=== PATIENT | male | born 1995 | race Caucasian/White ===

== ENCOUNTER 2019-12-30 19:49 | Emergency (ER) | payer MEDICAID, OTHER ==
--- NOTE | 2019-12-30 20:34 | EDM.PDOC ---
ED HPI GENERAL MEDICAL PROBLEM - General Chief Complaint: Respiratory Problem Stated Complaint: PNEUMONIA Time Seen by Provider: 12/30/19 20:30 Source of Information: Reports: Patient, Family History Limitations: Reports: No Limitations - History of Present Illness INITIAL COMMENTS - FREE TEXT/NARRATIVE: 24-year-old male with muscular dystrophy, has been treated with several rounds of antibiotics for left lower lobe pneumonia. Today he seemed more short of breath than they were concerned it was moving into his right lung. No fevers or chills, he did however run out of his nebulizer medicines 2 days ago and used an albuterol ampule that a relative had today about 3 hours before coming in. He looks stable, he is not labored and his O2 sats are normal, he is afebrile. Onset: Unknown/Unsure Associated Symptoms: Reports: Cough, Shortness of Breath. Denies: Fever/Chills - Related Data Allergies Allergy/AdvReac Type Severity Reaction Status Date / Time No Known Allergies Allergy Verified 12/30/19 20:12 Home Meds: Home Meds Albuterol Sulfate 1 ampule INH TID 12/30/19 [History] carvediloL [Carvedilol] 1 tab PO BID 12/30/19 [History] cefUROXime axetil [Cefuroxime] 1 tab PO BID 12/30/19 [History] lisinopriL [Lisinopril] 1 tab PO DAILY 12/30/19 [History] Past Medical History Neurological History: Reports: Other (See Below) Other Neuro History: MD - Past Surgical History HEENT Surgical History: Reports: Tonsillectomy Social & Family History - Tobacco Use Smoking Status *Q: Never Smoker ED ROS GENERAL - Review of Systems Review Of Systems: See Below Constitutional: Denies: Fever, Chills Respiratory: Reports: Shortness of Breath, Cough. Denies: Sputum Cardiovascular: Denies: Chest Pain GI/Abdominal: Denies: Nausea, Vomiting Musculoskeletal: Reports: Other (Wheelchair-bound from muscular dystrophy) Neurological: Denies: Headache ED EXAM, GENERAL - Physical Exam Exam: See Below Exam Limited By: No Limitations General Appearance: Alert, No Apparent Distress Head: Atraumatic Respiratory/Chest: No Respiratory Distress, Decreased Breath Sounds (Decreased breath sounds in the left base, otherwise normal lung sounds. No expiratory wheezes) Course - Vital Signs Last Recorded V/S: Last Vital Signs Temp 97.3 F 12/30/19 20:27 Pulse Resp 14 12/30/19 20:27 BP Pulse Ox 94 L 12/30/19 20:27 - Orders/Labs/Meds Orders: Active Orders 24 hr Category Date Time Status RT Aerosol Therapy [RC] ASDIRECTED Care 12/30/19 20:54 Active Chest 2V [CR] Routine Exams 12/30/19 20:31 Taken Meds: Medications Discontinued Medications Generic Name Dose Route Start Last Admin Trade Name David PRN Reason Stop Dose Admin Albuterol/Ipratropium 3 ml 12/30/19 20:54 12/30/19 21:34 Duoneb 3.0-0.5 Mg/3 Ml NEB 12/30/19 20:55 3 ml ONETIME ONE Administration - Re-Assessments/Exams Free Text/Narrative Re-Assessment/Exam: 12/30/19 20:34 A 2 view chest x-ray was obtained. 12/30/19 21:14 2 view x-ray showed no significant infiltrate, there did appear to be some mild increased vascularity which may be chronic. He will continue with his cefuroxime antibiotic and I gave him refills of his albuterol for his nebulizer which he ran out of. The DuoNeb gave him some subjective improvement, objectively he was already doing well. He will recheck at the clinic in the next 48 hours to compare the chest x-rays. Departure - Departure Time of Disposition: 21:43 Disposition: Home, Self-Care 01 Clinical Impression: Pneumonia Qualifiers: Pneumonia type: due to unspecified organism Laterality: left Lung location: lower lobe of lung Qualified Code(s): J18.9 - Pneumonia, unspecified organism Reactive airway disease Qualifiers: Asthma severity: mild Asthma persistence: persistent Asthma complication type: with acute exacerbation Qualified Code(s): J45.31 - Mild persistent asthma with (acute) exacerbation - Discharge Information Instructions: Shortness of Breath, Adult, [id number] Referrals: Jass Corral MD [Primary Care Provider] - Forms: ED Department Discharge Care Plan Goals: Consider rechecking in the next few days at the clinic to compare x-rays and monitor progress. Continue with the antibiotic as prescribed and use nebulizers every 4 hours as needed. Return anytime if worsening or concerns. Sepsis Event Note - Evaluation Sepsis Screening Result: No Definite Risk - Focused Exam Vital Signs: Vital Signs Temp Resp Pulse Ox 12/30/19 20:27 97.3 F 14 94 L Date Exam was Performed: 12/30/19 Time Exam was Performed: 23:03 - My Orders Last 24 Hours: My Active Orders 12/30/19 20:31 Chest 2V [CR] Routine 12/30/19 20:54 RT Aerosol Therapy [RC] ASDIRECTED - Assessment/Plan Last 24 Hours: My Active Orders 12/30/19 20:31 Chest 2V [CR] Routine 12/30/19 20:54 RT Aerosol Therapy [RC] ASDIRECTED
[2019-12-30] MEDS ORDERED: Albuterol/Ipratropium 3.0-0.5 MG/3 ML Neb Soln NEB ONE (20:54)
--- NOTE | 2019-12-31 11:04 | CR ---
CHEST: 2 view CLINICAL HISTORY:Dyspnea COMPARISON:2009 FINDINGS: Heart size and pulmonary vascularity are normal. There is some elevation left hemidiaphragm. There is patchy density in the retrocardiac region which may represent infiltrate or atelectasis. There may be a minimal effusion. Impression: Left lower lobe airspace disease most likely pneumonic infiltrate Probable small left pleural effusion.
== END 2019-12-30 21:43 | disposition home or self-care (01) ==
LOC: JP.ED 19:49
DX: J18.9 Pneumonia, unspecified organism (principal); J45.31 Mild persistent asthma with (acute) exacerbation; Z79.899 Other long term (current) drug therapy
CPT/HCPCS: 71046; 71046-26; 94640; 99284; 99285-25; J7620-GY

== ENCOUNTER 2021-10-20 08:18 | Emergency (ER) | payer MEDICAID ==
[2021-10-20 09:31] LABS: CORONAVIRUS COVID-19 NAA NEGATIVE (NEGATIVE)
[2021-10-20] MEDS ORDERED: Carvedilol 12.5 MG Tab PO ONE (09:39)
--- NOTE | 2021-10-20 09:40 | EDM.PDOC ---
ED HPI GENERAL MEDICAL PROBLEM - General Chief Complaint: Respiratory Problem Stated Complaint: COVID SYMPTOMS Time Seen by Provider: 10/20/21 09:33 Source of Information: Reports: Patient, Family, RN Notes Reviewed History Limitations: Reports: No Limitations - History of Present Illness INITIAL COMMENTS - FREE TEXT/NARRATIVE: 26-year-old gentleman presents emergency department today with concern about Covid exposure, for the last couple days he had sore throat cough sputum production feels a little short of breath did have positive exposure about a week prior, - Related Data Allergies Allergy/AdvReac Type Severity Reaction Status Date / Time No Known Allergies Allergy Verified 10/20/21 08:52 Home Meds: Home Meds carvediloL [Carvedilol] 1 tab PO BID 12/30/19 [History] lisinopriL [Lisinopril] 1 tab PO DAILY 12/30/19 [History] Acetaminophen/Codeine [Tylenol with Codeine No.3 300MG/30MG] 1 tab PO BEDTIME 10/20/21 [History] Azithromycin 250 mg PO DAILY #6 tablet 10/20/21 [Rx] Past Medical History Cardiovascular History: Reports: Cardiomyopathy Respiratory History: Reports: Other (See Below) Other Respiratory History: bronchitis Musculoskeletal History: Reports: Muscular Dystrophy Other Musculoskeletal History: at Neurological History: Reports: Other (See Below) Other Neuro History: MD - Past Surgical History HEENT Surgical History: Reports: Tonsillectomy Social & Family History - Tobacco Use Tobacco Use Status *Q: Never Tobacco User - Caffeine Use Caffeine Use: Reports: Soda Other Caffeine Use: 1-2 sodas per day - Recreational Drug Use Recreational Drug Type: Reports: Marijuana/Hashish Recreational Drug Use Frequency: Rarely ED ROS GENERAL - Review of Systems Review Of Systems: See Below Constitutional: Reports: Fever HEENT: Reports: No Symptoms Respiratory: Reports: Shortness of Breath, Cough, Sputum Cardiovascular: Reports: No Symptoms GI/Abdominal: Reports: No Symptoms ED EXAM, GENERAL - Physical Exam Exam: See Below Exam Limited By: No Limitations General Appearance: Alert, WD/WN, No Apparent Distress Respiratory/Chest: No Respiratory Distress, Lungs Clear, Normal Breath Sounds, No Accessory Muscle Use, Chest Non-Tender Cardiovascular: Tachycardia Course - Vital Signs Last Recorded V/S: Last Vital Signs Temp 98 F 10/20/21 10:46 Pulse 116 H 10/20/21 10:46 Resp 18 01/04/22 08:55 BP 101/69 10/20/21 09:50 Pulse Ox 95 10/20/21 10:46 - Orders/Labs/Meds Orders: Active Orders 24 hr Category Date Time Status Isolation [COMM] Stat Oth 10/20/21 08:32 Ordered Labs: Laboratory Tests 10/20/21 10/20/21 10/20/21 Range/Units 08:41 09:57 09:57 WBC 9.5 (4.5-11.0) K/uL RBC 4.51 (4.30-5.90) M/uL Hgb 14.4 (12.0-15.0) g/dL Hct 43.1 (40.0-54.0) % MCV 96 (80-98) fL MCH 32 H (27-31) pg MCHC 33 (32-36) % Plt Count 190 (150-400) K/uL Neut % (Auto) 87.2 H (36-66) % Lymph % (Auto) 6.2 L (24-44) % Gove % (Auto) 6.0 (2-6) % Eos % (Auto) 0.1 L (2-4) % Baso % (Auto) 0.2 (0-1) % Sodium 139 L (140-148) mmol/L Potassium 3.5 L (3.6-5.2) mmol/L Chloride 101 (100-108) mmol/L Carbon Dioxide 21 (21-32) mmol/L Anion Gap 20.5 H (5.0-14.0) mmol/L BUN 14 (7-18) mg/dL Creatinine 0.3 L (0.8-1.3) mg/dL Est Cr Clr Drug Dosing 289.80 mL/min Estimated GFR (MDRD) > 60 (>60) Glucose 109 H (74-106) mg/dL Lactic Acid (0.4-2.0) mmol/L Calcium 9.1 (8.5-10.1) mg/dL Total Bilirubin 0.5 (0.2-1.0) mg/dL AST 26 (15-37) U/L ALT 47 (12-78) U/L Alkaline Phosphatase 82 (46-116) U/L C-Reactive Protein 7.00 H (0.0-0.3) mg/dL Total Protein 7.1 (6.4-8.2) g/dL Albumin 4.2 (3.4-5.0) g/dL Globulin 2.9 (2.3-3.5) g/dL Albumin/Globulin Ratio 1.4 (1.2-2.2) Procalcitonin ng/mL Influenza Type A RNA Negative (NEGATIVE) RSV RNA (INAAT) Negative (NEGATIVE) Influenza Type B RNA Negative (NEGATIVE) SARS-CoV-2 RNA (JOYCE) Negative (NEGATIVE) 10/20/21 10/20/21 Range/Units 09:57 09:57 WBC (4.5-11.0) K/uL RBC (4.30-5.90) M/uL Hgb (12.0-15.0) g/dL Hct (40.0-54.0) % MCV (80-98) fL MCH (27-31) pg MCHC (32-36) % Plt Count (150-400) K/uL Neut % (Auto) (36-66) % Lymph % (Auto) (24-44) % Gove % (Auto) (2-6) % Eos % (Auto) (2-4) % Baso % (Auto) (0-1) % Sodium (140-148) mmol/L Potassium (3.6-5.2) mmol/L Chloride (100-108) mmol/L Carbon Dioxide (21-32) mmol/L Anion Gap (5.0-14.0) mmol/L BUN (7-18) mg/dL Creatinine (0.8-1.3) mg/dL Est Cr Clr Drug Dosing mL/min Estimated GFR (MDRD) (>60) Glucose (74-106) mg/dL Lactic Acid 1.6 (0.4-2.0) mmol/L Calcium (8.5-10.1) mg/dL Total Bilirubin (0.2-1.0) mg/dL AST (15-37) U/L ALT (12-78) U/L Alkaline Phosphatase (46-116) U/L C-Reactive Protein (0.0-0.3) mg/dL Total Protein (6.4-8.2) g/dL Albumin (3.4-5.0) g/dL Globulin (2.3-3.5) g/dL Albumin/Globulin Ratio (1.2-2.2) Procalcitonin 0.31 ng/mL Influenza Type A RNA (NEGATIVE) RSV RNA (INAAT) (NEGATIVE) Influenza Type B RNA (NEGATIVE) SARS-CoV-2 RNA (JOYCE) (NEGATIVE) Meds: Medications Discontinued Medications Generic Name Dose Route Start Last Admin Trade Name Freq PRN Reason Stop Dose Admin Carvedilol 12.5 mg 10/20/21 09:39 10/20/21 09:50 Carvedilol 12.5 Mg Tab PO 10/20/21 09:40 12.5 mg ONETIME ONE Administration Ceftriaxone Sodium 1 gm 10/20/21 11:10 Ceftriaxone 1 Gm Vial IM 10/20/21 11:11 ONETIME ONE Departure - Departure Time of Disposition: 11:15 Disposition: Home, Self-Care 01 Condition: Fair Clinical Impression: Acute bronchiolitis Qualifiers: Bronchiolitis organism: other organism Qualified Code(s): J21.8 - Acute bronchiolitis due to other specified organisms - Discharge Information Prescriptions: Azithromycin 250 mg PO DAILY #6 tablet Instructions: Acute Bronchitis, Adult, [id number] Referrals: Jass Corral MD [Primary Care Provider] - Forms: ED Department Discharge Additional Instructions: Take full course of antibiotics start today your antibiotics have been faxed to site pharmacy, please follow-up with your primary care in the next 3 to 5 days for reevaluation call return to the emergency department worsening of symptoms. Sepsis Event Note (ED) - Evaluation Sepsis Screening Result: No Definite Risk - Focused Exam Vital Signs: Vital Signs Temp Pulse Pulse Resp BP BP Pulse Ox 10/20/21 10:46 98 F 116 H 95 10/20/21 09:50 125 H 101/69 10/20/21 08:55 98.5 F 120 H 18 101/69 91 L 10/20/21 08:41 98.5 F 120 H 18 101/69 91 L - My Orders Last 24 Hours: My Active Orders 10/20/21 08:32 Isolation [COMM] Stat - Assessment/Plan Last 24 Hours: My Active Orders 10/20/21 08:32 Isolation [COMM] Stat Plan: Assessment Acuity = acute Site and laterality = bronchitis complicated in a gentleman with known muscular dystrophy Etiology = unknown Manifestations = dyspnea Location of injury = Home Lab values = CBC unremarkable CRP elevated 7.0 procalcitonin 0.31 lactic acid within normal limits CMP unremarkable chest x-ray consistent with pneumonitis Covid is negative influenza negative RSV negative Plan Given his health history elected to treat empirically azithromycin per package directions faxed to site pharmacy also 1 g Rocephin IM provided in the emergency department have follow-up primary care 3 to 5 days for further evaluation This note was dictated using [employer] voice recognition software please call with any questions on syntax or grammar.
--- NOTE | 2021-10-20 10:31 | CR ---
CHEST: SOB CLINICAL HISTORY:SOB COMPARISON:2019 FINDINGS: There is a generalized increase in lung markings. No airspace disease is identified. There are no effusions. Heart size and pulmonary vascularity are normal. Impression: Mild generalized increase in the lung markings may represent a pneumonitis
[2021-10-20] MEDS ORDERED: cefTRIAXone 1 GM Vial IM ONE (11:10)
[2021-10-20] MEDS ORDERED: cefTRIAXone 1 GM, Lidocaine 1% 2.1 ML IM ONE ×2 (12:00)
== END 2021-10-20 12:30 | disposition home or self-care (01) ==
LOC: JP.ED 08:18
DX: J21.8 Acute bronchiolitis due to other specified organisms (principal); R00.0 Tachycardia, unspecified; Z20.822 Contact with and (suspected) exposure to COVID-19
CPT/HCPCS: 0241U; 36415; 71046; 80053; 83605; 84145; 85025; 86140; 96372; 99283; A9270; J0696

== ENCOUNTER 2021-10-24 08:41 | Emergency (ER) | payer MEDICAID ==
[2021-10-24] MEDS ORDERED: guaiFENesin/Dextromethorphan 100-10 MG/5 ML Soln 10 ML Cup PO STA ×2 (09:26→13:23)
[2021-10-24 09:28] LABS: CORONAVIRUS COVID-19 NAA NEGATIVE (NEGATIVE)
--- NOTE | 2021-10-24 09:28 | EDM.PDOC ---
ED HPI GENERAL MEDICAL PROBLEM - General Chief Complaint: Respiratory Problem Stated Complaint: SOB Time Seen by Provider: 10/24/21 09:21 Source of Information: Reports: Patient, Family, Old Records, RN Notes Reviewed History Limitations: Reports: No Limitations - History of Present Illness INITIAL COMMENTS - FREE TEXT/NARRATIVE: 26-year-old gentleman presents emergency department day complaint of shortness of breath, he has a known history of muscular dystrophy I did have the opportunity evaluate him 4 days ago felt he had COVID bronchitis type picture did place him on antibiotics with a azithromycin 1 g Rocephin provided he states he is doing okay except for the large amount of mucus production and he has difficulty coughing it up which then makes him feel short of breath he did do nebulizer to this morning which he felt did not help - Related Data Allergies Allergy/AdvReac Type Severity Reaction Status Date / Time No Known Allergies Allergy Verified 10/20/21 08:52 Home Meds: Home Meds carvediloL [Carvedilol] 1 tab PO BID 12/30/19 [History] lisinopriL [Lisinopril] 1 tab PO DAILY 12/30/19 [History] Acetaminophen/Codeine [Tylenol with Codeine No.3 300MG/30MG] 1 tab PO BEDTIME 10/20/21 [History] Azithromycin 250 mg PO DAILY #6 tablet 10/20/21 [Rx] Past Medical History Cardiovascular History: Reports: Cardiomyopathy Respiratory History: Reports: Other (See Below) Other Respiratory History: bronchitis Musculoskeletal History: Reports: Muscular Dystrophy Other Musculoskeletal History: at Neurological History: Reports: Other (See Below) Other Neuro History: MD - Past Surgical History HEENT Surgical History: Reports: Tonsillectomy Social & Family History - Tobacco Use Tobacco Use Status *Q: Never Tobacco User - Caffeine Use Caffeine Use: Reports: Soda Other Caffeine Use: 1-2 sodas per day ED ROS GENERAL - Review of Systems Review Of Systems: See Below Constitutional: Denies: Fever, Chills HEENT: Reports: No Symptoms Respiratory: Reports: Shortness of Breath, Cough, Sputum Cardiovascular: Reports: No Symptoms GI/Abdominal: Reports: No Symptoms ED EXAM, GENERAL - Physical Exam Exam: See Below Exam Limited By: No Limitations General Appearance: Alert, WD/WN, No Apparent Distress Respiratory/Chest: No Respiratory Distress, Chest Non-Tender, Decreased Breath Sounds, Rhonchi Cardiovascular: Regular Rate, Rhythm, No Murmur #1 Interpretation EKG Date: 10/24/21 Rhythm: NSR Channing: Normal P-Wave: Present QRS: Normal ST-T: Normal QT: Normal Comparison: NA - No Prior EKG Course - Vital Signs Last Recorded V/S: Last Vital Signs Temp 98.7 F 10/24/21 08:57 Pulse 81 10/24/21 13:30 Resp 21 H 10/24/21 13:30 BP 109/74 10/24/21 13:30 Pulse Ox 96 10/24/21 13:30 - Orders/Labs/Meds Orders: Active Orders 24 hr Category Date Time Status Peripheral IV Care [RC] . DIRECTED Care 10/24/21 10:15 Active Potassium Chloride 20 meq Med 10/24/21 12:30 Active Lidocaine 1% [Xylocaine 1%] 2 ml Sodium Chloride 0.9% [Normal Saline] 100 ml IV Q2H Sodium Chloride 0.9% [Saline Flush] Med 10/24/21 10:14 Active 10 ml FLUSH ASDIRECTED PRN Isolation [COMM] Stat Oth 10/24/21 08:43 Ordered Peripheral IV Insertion Adult [OM.PC] Urgent Oth 10/24/21 10:14 Ordered EKG 12 Lead [EK] Stat Ther 10/24/21 10:15 Ordered Medication Orders Potassium Chloride 20 meq/Lidocaine HCl 2 ml/ Sodium Chloride 112 mls @ 50 mls/hr IV Q2H FRANCI Stop: 10/24/21 14:29 Last Admin: 10/24/21 12:22 Dose: 50 mls/hr Documented by: DRE Sodium Chloride (Sodium Chloride 0.9% 10 Ml Syringe) 10 ml FLUSH ASDIRECTED PRN PRN Reason: Keep Vein Open Labs: Laboratory Tests 10/24/21 10/24/21 10/24/21 Range/Units 09:01 09:44 09:44 WBC 9.9 (3.2-11.0) K/uL RBC 4.43 (4.14-5.76) M/uL Hgb 14.1 (12.9-16.9) Hct 40.9 (38.4-49.7) % MCV 92.3 (81.4-99.0) fL MCH 31.8 (31.6-35.5) pg MCHC 34.5 (31.6-35.5) g/dL Plt Count 212 (130-375) K/uL Immature Gran % (Auto) 0.4 (0.0-0.7) % Neut % (Auto) 58.7 (36-66) % Lymph % (Auto) 30.9 (24-44) % Monona % (Auto) 9.6 H (2-6) % Eos % (Auto) 0.2 L (2-4) % Baso % (Auto) 0.2 (0-1) % Neut # (Auto) 5.82 (1.0-7.6) K/uL Lymph # (Auto) 3.07 (0.8-3.3) K/uL Monona # (Auto) 0.95 H (0.20-0.90) K/uL Eos # (Auto) 0.02 L (0.60-0.80) K/uL Baso # (Auto) 0.02 (0.00-0.10) K/uL Immature Gran # (Auto) 0.04 (0.00-0.23) K/uL Sodium 139 L (140-148) mmol/L Potassium 2.7 L* (3.6-5.2) mmol/L Chloride 101 (100-108) mmol/L Carbon Dioxide 30 (21-32) mmol/L Anion Gap 10.7 (5.0-14.0) mmol/L BUN 6 L D (7-18) mg/dL Creatinine 0.2 L (0.8-1.3) mg/dL Est Cr Clr Drug Dosing 434.69 mL/min Estimated GFR (MDRD) > 60 (>60) Glucose 95 (74-106) mg/dL Lactic Acid (0.4-2.0) mmol/L Calcium 8.7 (8.5-10.1) mg/dL Procalcitonin ng/mL Influenza Type A RNA Negative (NEGATIVE) RSV RNA (INAAT) Negative (NEGATIVE) Influenza Type B RNA Negative (NEGATIVE) SARS-CoV-2 RNA (JOYCE) Negative (NEGATIVE) 10/24/21 10/24/21 Range/Units 09:44 09:44 WBC (3.2-11.0) K/uL RBC (4.14-5.76) M/uL Hgb (12.9-16.9) Hct (38.4-49.7) % MCV (81.4-99.0) fL MCH (31.6-35.5) pg MCHC (31.6-35.5) g/dL Plt Count (130-375) K/uL Immature Gran % (Auto) (0.0-0.7) % Neut % (Auto) (36-66) % Lymph % (Auto) (24-44) % Monona % (Auto) (2-6) % Eos % (Auto) (2-4) % Baso % (Auto) (0-1) % Neut # (Auto) (1.0-7.6) K/uL Lymph # (Auto) (0.8-3.3) K/uL Monona # (Auto) (0.20-0.90) K/uL Eos # (Auto) (0.60-0.80) K/uL Baso # (Auto) (0.00-0.10) K/uL Immature Gran # (Auto) (0.00-0.23) K/uL Sodium (140-148) mmol/L Potassium (3.6-5.2) mmol/L Chloride (100-108) mmol/L Carbon Dioxide (21-32) mmol/L Anion Gap (5.0-14.0) mmol/L BUN (7-18) mg/dL Creatinine (0.8-1.3) mg/dL Est Cr Clr Drug Dosing mL/min Estimated GFR (MDRD) (>60) Glucose (74-106) mg/dL Lactic Acid 1.2 (0.4-2.0) mmol/L Calcium (8.5-10.1) mg/dL Procalcitonin 0.06 ng/mL Influenza Type A RNA (NEGATIVE) RSV RNA (INAAT) (NEGATIVE) Influenza Type B RNA (NEGATIVE) SARS-CoV-2 RNA (JOYCE) (NEGATIVE) Meds: Medications Generic Name Dose Route Start Last Admin Trade Name Freq PRN Reason Stop Dose Admin Potassium Chloride 20 meq/ 112 mls @ 50 mls/hr 10/24/21 12:30 10/24/21 12:22 Lidocaine HCl 2 ml/ Sodium IV 10/24/21 14:29 50 mls/hr Chloride Q2H FRANCI Administration Sodium Chloride 10 ml 10/24/21 10:14 Sodium Chloride 0.9% 10 Ml Syringe FLUSH ASDIRECTED PRN Keep Vein Open Discontinued Medications Generic Name Dose Route Start Last Admin Trade Name David PRN Reason Stop Dose Admin Dexamethasone 10 mg 10/24/21 10:46 10/24/21 11:59 Dexamethasone 4 Mg/Ml Sdv PO 10/24/21 10:47 10 mg ONETIME ONE Administration Guaifenesin/Dextromethorphan 10 ml 10/24/21 09:26 10/24/21 09:44 Guaifenesin/Dextromethorphan 100-10 Mg/5 Ml Soln 10 Ml Cup PO 10/24/21 09:27 10 ml NOW STA Administration Guaifenesin/Dextromethorphan 10 ml 10/24/21 13:23 10/24/21 13:35 Guaifenesin/Dextromethorphan 100-10 Mg/5 Ml Soln 10 Ml Cup PO 10/24/21 13:24 10 ml NOW STA Administration Potassium Chloride 20 meq/ 100 mls @ 50 mls/hr 10/24/21 10:14 10/24/21 12:00 Premix IV 10/24/21 12:13 50 mls/hr ONETIME ONE Administration Lactated Ringer's 1,000 mls @ 999 mls/hr 10/24/21 12:03 10/24/21 12:07 Ringers, Lactated IV 10/24/21 13:03 999 mls/hr BOLUS ONE Administration Potassium Chloride 40 meq 10/24/21 10:14 Potassium Chloride 20 Meq Tab.Er PO 10/24/21 10:15 ONETIME ONE Potassium Chloride 20 meq 10/24/21 11:00 10/24/21 12:00 Potassium Chloride 10% 20 Meq/15 Ml Soln 15 Ml Ud Cup PO 10/24/21 11:01 20 meq ONETIME ONE Administration Departure - Departure Time of Disposition: 14:26 Disposition: Home, Self-Care 01 Condition: Fair Clinical Impression: Acute bronchiolitis Qualifiers: Bronchiolitis organism: other organism Qualified Code(s): J21.8 - Acute bronchiolitis due to other specified organisms - Discharge Information Instructions: Upper Respiratory Infection, Adult, [id number] Referrals: Jass Corral MD [Primary Care Provider] - Forms: ED Department Discharge Additional Instructions: Try the [id number] guaifenesin as an expectorant to help thin the mucus, try the Robitussin with codeine at night mainly to suppress the cough this should make you sleepy, please followup with your primary care provider in 3-5 days if not better, please call return to the emergency department with worsening of symptoms. Sepsis Event Note (ED) - Evaluation Sepsis Screening Result: No Definite Risk - Focused Exam Vital Signs: Vital Signs Temp Pulse Resp BP Pulse Ox 10/24/21 13:30 81 21 H 109/74 96 10/24/21 12:15 91 17 103/70 97 10/24/21 11:10 87 20 98/74 96 10/24/21 10:22 83 21 H 91/69 96 10/24/21 09:44 100/59 L 96 10/24/21 08:57 98.7 F 81 20 88/56 L 93 L - My Orders Last 24 Hours: My Active Orders 10/24/21 08:43 Isolation [COMM] Stat 10/24/21 10:14 Sodium Chloride 0.9% [Saline Flush] 10 ml FLUSH ASDIRECTED PRN Peripheral IV Insertion Adult [OM.PC] Urgent 10/24/21 10:15 Peripheral IV Care [RC] . DIRECTED EKG 12 Lead [EK] Stat 10/24/21 12:30 Potassium Chloride 20 meq Lidocaine 1% [Xylocaine 1%] 2 ml Sodium Chloride 0.9% [Normal Saline] 100 ml IV Q2H - Assessment/Plan Last 24 Hours: My Active Orders 10/24/21 08:43 Isolation [COMM] Stat 10/24/21 10:14 Sodium Chloride 0.9% [Saline Flush] 10 ml FLUSH ASDIRECTED PRN Peripheral IV Insertion Adult [OM.PC] Urgent 10/24/21 10:15 Peripheral IV Care [RC] . DIRECTED EKG 12 Lead [EK] Stat 10/24/21 12:30 Potassium Chloride 20 meq Lidocaine 1% [Xylocaine 1%] 2 ml Sodium Chloride 0.9% [Normal Saline] 100 ml IV Q2H Plan: Assessment Acuity = acute Site and laterality = bronchiolitis Etiology = unknown Manifestations = cough, sputum production Location of injury = Home Lab values = CBC BMP unremarkable except for potassium level was at 2.7 prior to replacement of oral and IV Plan He did well with the liquid guaifenesin this is aazd-abs-vejcics medication Picks him up and try that as an expectorant to help him with coughing at night prescription for Robitussin-AC was provided 4 mL every 4 hours as needed 120 mL bottle and follow-up primary care in the next 3 to 5 days for further evaluation if no improvement This note was dictated using [employer] voice recognition software please call with any questions on syntax or grammar.
[2021-10-24] MEDS ORDERED: Sodium Chloride 0.9% 10 ML Syringe FLUSH PRN (10:14)
[2021-10-24] MEDS ORDERED: Potassium Chloride 20 MEQ Tab.ER PO ONE (10:14)
--- NOTE | 2021-10-24 10:16 | CRLCR ---
For Patients: As a result of the Century Cures Act, medical imaging exams and procedure reports are released immediately into your electronic medical record. You may view this report before your referring provider. If you have questions, please contact your health care provider. INDICATION: Cough TECHNIQUE: Chest 1 view COMPARISON: Report from 10/20/2021 FINDINGS: Bronchial wall thickening and adjacent ground-glass opacities within the left perihilar lung. Similar findings to a lesser degree within the right infrahilar lung. No pleural effusion or pneumothorax. Cardiac silhouette normal. IMPRESSION: Bilateral bronchiolitis the perihilar lungs, left greater than right. Dictated by Jass Lugo MD @ 10/24/2021 10:14:10 AM (Electronically Signed)
[2021-10-24] MEDS ORDERED: Dexamethasone 4 MG/ML SDV PO ONE (10:46)
[2021-10-24] MEDS: Potassium Chloride 20 MEQ in Premix Bag 1 BAG IV ONE ×2 (10:51→12:00)
[2021-10-24] MEDS ORDERED: Potassium Chloride 10% 20 MEQ/15 ML Soln 15 ML UD Cup PO ONE (11:00)
[2021-10-24] MEDS ORDERED: Lactated Ringers 1,000 ML IV ONE (12:03)
[2021-10-24] MEDS ORDERED: Potassium Chloride 20 MEQ, Lidocaine 1% 2 ML in Sodium Chloride 0.9% 100 ML IV SCH (12:30)
== END 2021-10-24 14:50 | disposition home or self-care (01) ==
LOC: JP.ED 08:41
DX: J21.8 Acute bronchiolitis due to other specified organisms (principal); Z79.899 Other long term (current) drug therapy; Z20.822 Contact with and (suspected) exposure to COVID-19
CPT/HCPCS: 0241U; 36415; 71045; 80048; 83605; 84145; 85025; 93005; 96365; 96366; 99285; A9270; J3480; J7120; J8540; 93010; 99284

== ENCOUNTER 2021-10-29 10:21 | Emergency (ER) | payer MEDICAID ==
[2021-10-29] MEDS: guaiFENesin 100 MG/5 ML Soln ML (118 ML Bottle) PO ONE (12:23)
[2021-10-29] MEDS: cefTRIAXone 1 GM Vial IM ONE (13:26)
== END 2021-10-29 13:40 | disposition home or self-care (01) ==
LOC: JP.ED 10:21
DX: J18.9 Pneumonia, unspecified organism (principal)
CPT/HCPCS: 36415; 71045; 71045-26; 80048; 85025; 96372; 99283; 99285-25; A9270-GY; J0696

== ENCOUNTER 2023-09-17 05:41 | Inpatient (IN) | payer MEDICAID ==
[2023-09-17] MEDS ORDERED: Sodium Chloride 0.9% 1,000 ML IV SCH (06:30)
[2023-09-17 06:40] LABS: BASOPHILS PERCENT AUTO 0.2 % (0.1-1.3); HEMATOCRIT 42.7 % (38.4-49.7); HEMOGLOBIN 14.6 g/dL (12.9-16.9); IMMATURE GRAN ABSOLUTE AUTO 0.03 K/uL (0.00-0.23); IMMATURE GRAN PERCENT AUTO 0.5 % (0.0-0.7); LYMPHOCYTES ABSOLUTE AUTO 1.15 K/uL (0.8-3.3); LYMPHOCYTES PERCENT AUTO 17.5 % (11.4-47.7); MEAN CORPUSCULAR HEMOGLOBIN 32.7 pg (31.6-35.5); MEAN CORPUSCULAR HGB CONC 34.2 g/dL (31.6-35.5); MEAN CORPUSCULAR VOLUME 95.7 fL (81.4-99.0); MONOCYTES PERCENT AUTO 12.2 % (3.3-12.6); NEUTROPHILS ABSOLUTE AUTO 4.57 K/uL (1.0-7.6); NEUTROPHILS PERCENT AUTO 69.6 % (40.0-78.1); PLATELET COUNT,PLT 141 K/uL (130-375); RED BLOOD CELL COUNT 4.46 M/uL (4.14-5.76); WHITE BLOOD CELL COUNT,WBC 6.6 K/uL (3.2-11.0)
[2023-09-17 06:44] LABS: BASOPHILS ABSOLUTE AUTO 0.01 K/uL (0.00-0.10)
[2023-09-17 06:58] LABS: BASE EXCESS VENOUS 5.5 mm/L; BICARBONATE,VENOUS 31.8 mmol/L; METHEMOGLOBIN 0.5 %; O2 SATURATION VENOUS 94.5; OXYHEMOGLOBIN 90.2 %; PCO2 VENOUS 54.8 mm/Hg; PH,VENOUS 7.382 (7.350-7.450); PO2 VENOUS 66.2 mm/Hg; TOTAL HEMOGLOBIN 15.2 g/dL (13.5-18.0)
[2023-09-17 07:07] LABS: CORONAVIRUS COVID-19 NAA NEGATIVE (NEGATIVE); INFLUENZA A NAA POSITIVE (NEGATIVE); INFLUENZA B NAA NEGATIVE (NEGATIVE); RESPIRATORY SYNCYTIAL VIR NAA NEGATIVE (NEGATIVE)
[2023-09-17 07:30] LABS: A/G RATIO 1.1 (1.2-2.2); ALANINE AMINOTRANSFERASE,ALT 52 U/L (12-78); ALBUMIN 3.2 g/dL (3.4-5.0); ALKALINE PHOSPHATASE 86 U/L (46-116); ASPARTATE AMNIOTRANSFERASE,AST 41 U/L (15-37); BILIRUBIN TOTAL 0.5 mg/dL (0.2-1.0); BLOOD UREA NITROGEN,BUN 11 mg/dL (7-18); CALCIUM 8.5 mg/dL (8.5-10.1); CARBON DIOXIDE,CO2 30 mmol/L (21-32); CHLORIDE,CL 96 mmol/L (100-108); CREATININE < 0.2 mg/dL (0.8-1.3); GLUCOSE RANDOM 117 mg/dL (74-106); PROTEIN TOTAL,TP 6.2 g/dL (6.4-8.2); SODIUM,NA 136 mmol/L (140-148)
[2023-09-17 07:39] LABS: ANION GAP 12.5 mmol/L (5.0-14.0); POTASSIUM,K 2.5 mmol/L (3.6-5.2)
[2023-09-17] MEDS ORDERED: Potassium Chloride 20 MEQ Tab.ER PO ONE (08:04)
[2023-09-17] MEDS ORDERED: NS + KCl 20mEq/L 1,000 ML IV SCH (08:15)
[2023-09-17 09:08] LABS: APPEARANCE,URINE CLEAR (CLEAR); BILIRUBIN,URINE NEGATIVE (NEGATIVE); COLOR,URINE YELLOW (YELLOW); GLUCOSE,URINE NEGATIVE (NEGATIVE); KETONES,URINE NEGATIVE (NEGATIVE); LEUKOCYTE ESTERASE,URINE NEGATIVE (NEGATIVE); NITRITE,URINE NEGATIVE (NEGATIVE); OCCULT BLOOD,URINE NEGATIVE (NEGATIVE); PH,URINE 6.5 (5.0-8.0); PROTEIN,URINE 100 mg/dL (NEGATIVE)
[2023-09-17 09:22] LABS: AMORPHOUS SEDIMENT,URINE NOT SEEN; BACTERIA,URINE NOT SEEN; EPITHELIAL CELLS,URINE FEW; MUCUS,URINE MANY; RBC,URINE 0-5 (0-5); WBC,URINE 0-5 (0-5)
[2023-09-17] MEDS ORDERED: Ondansetron 4 MG/2 ML SDV IV PRN (10:36)
[2023-09-17] MEDS ORDERED: Benzonatate 100 MG Cap PO PRN (10:36)
[2023-09-17] MEDS ORDERED: Acetaminophen Soln 650 MG/20.3 ML UD Cup PO PRN (10:36)
[2023-09-17] MEDS ORDERED: Benzocaine/Cetylpyridinium/Menthol Lozenge MUCMEM PRN (10:36)
[2023-09-17] MEDS ORDERED: Ondansetron 4 MG Tab.DIS PO PRN (10:36)
[2023-09-17] MEDS ORDERED: guaiFENesin/Dextromethorphan 100-10 MG/5 ML Soln 10 ML Cup PO PRN (10:36)
[2023-09-17] MEDS: NS + KCl 20mEq/L 1,000 ML IV SCH (11:13)
[2023-09-17] MEDS: Oseltamivir 6 MG/ML Susp 60 ML Bot PO SCH ×2 (11:21→20:16)
[2023-09-17] MEDS: Enoxaparin 30 MG/0.3 ML Syringe SUBCUT SCH (11:22)
[2023-09-17] MEDS: cefTRIAXone 1 GM in Sodium Chloride 0.9% 50 ML IV SCH (12:12)
[2023-09-17] MEDS: Doxycycline 100 MG in Sodium Chloride 0.9% 100 ML IV SCH ×2 (13:04→23:34)
[2023-09-17] MEDS ORDERED: Lisinopril 5 MG Tab PO SCH (17:00)
[2023-09-17] MEDS: Carvedilol 12.5 MG Tab PO SCH (18:00)
[2023-09-17] MEDS ORDERED: Albuterol 0.083% 2.5 MG/3 ML Neb Soln NEB PRN ×2 (20:04→20:05)
[2023-09-17] MEDS: Albuterol/Ipratropium 3.0-0.5 MG/3 ML Neb Soln NEB SCH (20:15)
[2023-09-17] MEDS ORDERED: Acetaminophen Soln 160 MG/5 ML UD Cup PO PRN (23:01)
[2023-09-17] MEDS ORDERED: diphenhydrAMINE 25 MG/10 ML Cup PO PRN (23:02)
[2023-09-18] MEDS: NS + KCl 20mEq/L 1,000 ML IV SCH (00:52)
[2023-09-18 04:46] LABS: HEMATOCRIT 39.1 % (38.4-49.7); HEMOGLOBIN 12.5 g/dL (12.9-16.9); MEAN CORPUSCULAR HEMOGLOBIN 31.9 pg (31.6-35.5); MEAN CORPUSCULAR VOLUME 99.7 fL (81.4-99.0); RED BLOOD CELL COUNT 3.92 M/uL (4.14-5.76); WHITE BLOOD CELL COUNT,WBC 5.6 K/uL (3.2-11.0)
[2023-09-18 05:08] LABS: BLOOD UREA NITROGEN,BUN 3 mg/dL (7-18); CALCIUM 7.8 mg/dL (8.5-10.1); CARBON DIOXIDE,CO2 34 mmol/L (21-32); CHLORIDE,CL 107 mmol/L (100-108); CREATININE < 0.2 mg/dL (0.8-1.3); GLUCOSE RANDOM 101 mg/dL (74-106); POTASSIUM,K 4.7 mmol/L (3.6-5.2); SODIUM,NA 142 mmol/L (140-148)
[2023-09-18 05:22] LABS: ANION GAP 5.7 mmol/L (5.0-14.0)
[2023-09-18] MEDS: Albuterol/Ipratropium 3.0-0.5 MG/3 ML Neb Soln NEB SCH ×2 (07:07→10:34)
[2023-09-18] MEDS ORDERED: Acetaminophen Soln 650 MG/20.3 ML UD Cup PO PRN (08:43)
[2023-09-18] MEDS: Oseltamivir 6 MG/ML Susp 60 ML Bot PO SCH (09:47)
[2023-09-18] MEDS: Carvedilol 12.5 MG Tab PO SCH (09:47)
[2023-09-18] MEDS: cefTRIAXone 1 GM in Sodium Chloride 0.9% 50 ML IV SCH (11:05)
[2023-09-18] MEDS: Enoxaparin 30 MG/0.3 ML Syringe SUBCUT SCH (11:08)
== END 2023-09-18 14:50 | disposition home or self-care (01) | DRG 193 ==
LOC: JP.ED 05:41 → JP.MS 10:05
PROVIDERS: ADMIT Internal Medicine; ATTEND Internal Medicine
DX: J10.1 Influenza due to other identified influenza virus with other respiratory manifestations (principal); J96.01 Acute respiratory failure with hypoxia; J15.8 Pneumonia due to other specified bacteria; E87.6 Hypokalemia; G71.01 Duchenne or Becker muscular dystrophy; Z11.52 Encounter for screening for COVID-19; Z90.49 Acquired absence of other specified parts of digestive tract; Z99.81 Dependence on supplemental oxygen; Z99.89 Dependence on other enabling machines and devices; Z79.899 Other long term (current) drug therapy
CPT/HCPCS: 0241U; 36415; 71045; 71045-26; 80048; 80053; 81001; 82803; 83605; 84132; 84145; 85025; 85027; 86140; 87040; 94640; 99222; 99238; A9270-GY; J0696; J1650; J3480; J3490; J7030; J7620

== ENCOUNTER 2023-09-18 18:22 | Emergency (ER) | payer MEDICAID ==
[~2023-09-18 18:22] MED LIST: EPINEPHrine 1:10,000 1 MG/10 ML Syringe IVPUSH ONE
[2023-09-18] MEDS ORDERED: EPINEPHrine 1:10,000 1 MG/10 ML Syringe IVPUSH ONE ×3 (18:27→18:33)
[2023-09-18] MEDS ORDERED: Sodium Chloride 0.9% 10 ML Syringe FLUSH PRN (18:51)
[2023-09-18] MEDS ORDERED: Sodium Chloride 0.9% 1,000 ML IV ONE (18:51)
[2023-09-18 18:58] LABS: HEMATOCRIT 42.1 % (38.4-49.7); HEMOGLOBIN 13.3 g/dL (12.9-16.9); MEAN CORPUSCULAR HEMOGLOBIN 32.4 pg (31.6-35.5); MEAN CORPUSCULAR HGB CONC 31.6 g/dL (31.6-35.5); MEAN CORPUSCULAR VOLUME 102.4 fL (81.4-99.0); PLATELET COUNT,PLT 60 K/uL (130-375); RED BLOOD CELL COUNT 4.11 M/uL (4.14-5.76); WHITE BLOOD CELL COUNT,WBC 13.2 K/uL (3.2-11.0)
[2023-09-18] MEDS ORDERED: cefTRIAXone 2 GM in Sodium Chloride 0.9% 50 ML IV ONE (19:00)
[2023-09-18 19:07] LABS: BASE EXCESS ARTERIAL -8.4 mm/L; BICARBONATE,ARTERIAL 23.2 mmol/L (22.0-26.0); CARBOXYHEMOGLOBIN 1.6 % (0.0-1.6); METHEMOGLOBIN 0.9 %; O2 SATURATION ARTERIAL 41.2 % (95.0-98.0); OXYHEMOGLOBIN 40.2 %; TOTAL HEMOGLOBIN 13.8 g/dL (13.5-18.0)
[2023-09-18 19:09] LABS: PCO2 ARTERIAL 78.6 mmHg (35.0-42.0); PO2 ARTERIAL 30.2 mmHg (75.0-100.0)
[2023-09-18] MEDS ORDERED: Hydrocortisone Sodium Succinate 100 MG/2 ML SDV IVPUSH ONE (19:13)
[2023-09-18] MEDS ORDERED: Norepinephrine Bit/D5W Premix 4 MG in Premix Bag 1 BAG IV SCH (19:13)
[2023-09-18] MEDS ORDERED: Cefepime 2 GM in Sodium Chloride 0.9% 50 ML IV ONE (19:14)
[2023-09-18 19:15] LABS: INR 1.5; PROTHROMBIN TIME 15.1 sec (9.2-10.6); PTT,PARTIAL THROMBOPLSTIN TIME 75.9 sec (21.8-27.3)
[2023-09-18] MEDS ORDERED: propofoL 100 ML IV SCH (19:15)
[2023-09-18] MEDS ORDERED: Dextrose 5%-0.9% NaCl 1,000 ML IV SCH (19:15)
[2023-09-18 19:17] LABS: LYMPHOCYTES ABSOLUTE MAN 7.39 K/uL (0.8-3.3); LYMPHOCYTES PERCENT MAN 56 % (24-44); METAMYELOCYTE PERCENT MAN 3 %; MONOCYTES ABSOLUTE MAN 0.53 K/uL (0.20-0.90); MONOCYTES PERCENT MAN 4 % (2-6); NEUTROPHILS ABSOLUTE MAN 4.88 K/uL (1.0-7.6); SEG NEUTROPHILS PERCENT MAN 37 % (36-66)
[2023-09-18 19:18] LABS: ATYPICAL LYMPHOCYTES FEW
[2023-09-18] MEDS ORDERED: Sodium Chloride 0.9% 100 ML ONE (19:23)
[2023-09-18 19:25] LABS: A/G RATIO 0.8 (1.2-2.2); ALANINE AMINOTRANSFERASE,ALT 570 U/L (12-78); ALBUMIN 1.8 g/dL (3.4-5.0); ALKALINE PHOSPHATASE 88 U/L (46-116); ANION GAP 13.6 mmol/L (5.0-14.0); ASPARTATE AMNIOTRANSFERASE,AST 638 U/L (15-37); BILIRUBIN TOTAL 0.3 mg/dL (0.2-1.0); BLOOD UREA NITROGEN,BUN 3 mg/dL (7-18); CARBON DIOXIDE,CO2 26 mmol/L (21-32); CHLORIDE,CL 103 mmol/L (100-108); CREATININE 0.3 mg/dL (0.8-1.3); ESTIMATED GFR 167 mL/min (>60); GLUCOSE RANDOM 214 mg/dL (74-106); POTASSIUM,K 4.6 mmol/L (3.6-5.2); SODIUM,NA 138 mmol/L (140-148)
[2023-09-18 19:26] LABS: TROPONIN I HIGH SENSITIVITY 317.7 pg/mL (<=60.3)
[2023-09-18] MEDS ORDERED: Vasopressin 100 UNITS in Dextrose 5% in Water 245 ML IV SCH ×2 (19:45)
== END 2023-09-18 20:20 ==
LOC: JP.ED 18:22
DX: I46.9 Cardiac arrest, cause unspecified (principal); I46.2 Cardiac arrest due to underlying cardiac condition; J96.02 Acute respiratory failure with hypercapnia; J09.X2 Influenza due to identified novel influenza A virus with other respiratory manifestations; J18.9 Pneumonia, unspecified organism; G71.01 Duchenne or Becker muscular dystrophy; E87.20 Acidosis, unspecified; D69.6 Thrombocytopenia, unspecified; Z79.899 Other long term (current) drug therapy
CPT/HCPCS: 31500; 36415; 36600; 43752; 51702; 71045; 80053; 82803; 83605; 84145; 84484; 85025; 85610; 85730; 86140; 92950; 93005; 96361; 96365; 96367; 96368; 96375; 99291; J0171; J0692; J0696; J1720; J3370; J3490; J7030; J7050